=== PATIENT | female | born 1990 | race Caucasian/White ===

== ENCOUNTER 2021-04-10 14:15 | Emergency (ER) | payer BC, SELFPAY ==
[2021-04-10 14:19] VITALS: BP 120/76; PULSE 87; RESP 18; TEMP 36.8; O2SAT 100
== END 2021-04-11 01:31 | disposition left against medical advice (07) ==
LOC: ANHED 16:23
PROVIDERS: PCP Family Medicine
DX: Z53.21 Procedure and treatment not carried out due to patient leaving prior to being seen by health care provider (principal)
CPT/HCPCS: 99199

== ENCOUNTER 2022-04-04 14:56 | Observation (INO) | payer BC, SELFPAY ==
--- NOTE | 2022-04-04 14:56 | OBADM ---
This patient, Mian Duenas, admitted to the OB room Labor/Delivery/Recovery 103 for observation. Patient/family oriented to hospital policies and general routines including ID bracelet, bed and alarms, visiting hours, pain management, procedures, bathroom and other care routines, personal items, smoking policy, room service/diet, and visiting hours. Patient/Family are encouraged to report perceived risks to care and to ask questions if they do not understand what they are told or what they should do.
[2022-04-04 15:15] VITALS: BMI 33.8
--- NOTE | 2022-04-05 14:57 | PM.OBTRLD ---
OB - Triage/Final Diagnosis Visit Information Date of evaluation: 04/05/22 Reason for evaluation: threatened labor Comments/Additional reasons for admission: I have assessed the risk for this patient, Mian Duenas, and determined that she would benefit from observation care. Evaluation Vital signs: Vital Signs - 24 hr 04/04/22 15:15 Oxygen Delivery Room Air
== END 2022-04-04 16:40 | disposition home or self-care (01) ==
PROVIDERS: Admitting Provider Obstetrics & Gynecology; PCP Family Medicine; Visit Provider Obstetrics & Gynecology
DX: O47.1 False labor at or after 37 completed weeks of gestation (principal); Z3A.37 37 weeks gestation of pregnancy
CPT/HCPCS: G0378; G0379

== ENCOUNTER 2022-04-06 04:32 | Inpatient (IN) | payer BC, SELFPAY ==
[2022-04-06] VITALS (71 sets, daily range): BP systolic 84–143; BP diastolic 39–85; PULSE 62–141; RESP 16–18; TEMP 36.8–37.2; O2SAT 74–100; BMI 33.8
--- NOTE | 2022-04-06 06:53 | P.HP_ITS ---
H&P: HPI History of Present Illness Date/Time: 04/06/22 06:53 Chief Complaint: Labor at term with group B strep positivity Narrative: 32-year-old multiparous patient at term with positive group B strep in active labor. Her has been uncomplicated. [facility] Family History Family History Other Patient denies significant medical history Social History Social History Alcohol intake: current Substance use: never Spiritual care concerns: No Meds Home Medications and Allergies Home Medications Medication Instructions Recorded Confirmed Type fluoxetine 40 mg capsule 40 mg PO DAILY 04/30/21 04/30/21 History prenat.vits,migel,[id number] 1 tablet PO HS 03/25/22 03/25/22 History Allergies Allergy/AdvReac Type Severity Reaction Status Date / Time No Known Allergies Allergy Verified 04/30/21 10:46 Exam Const: General: cooperative, healthy appearing and comfortable Nutritional Appearance: average body habitus Orientation/consciousness: oriented to person, oriented to place and oriented to time HENMT: Head: normal to inspection Resp: Effort & Inspection: normal respiratory effort Cardio: Rate: regular rate Rhythm: regular rhythm Heart sounds: S1 normal heart sound present and S2 normal heart sound present GI: Inspection: normal to inspection : External Female Exam: normal external appearance Speculum Exam - Vagina: normal appearance of the vagina Speculum Exam - Cervix: normal appearance of the cervix ( Cervix 6/90/1. AROM clear. FHT is reassuring) Assessment and Plan Assessment and plan (1) Term : Code(s): Z34.90 - Encounter for supervision of normal , unspecified, unspecified trimester Status: Acute (2) Group beta Strep positive: Code(s): B95.1 - Streptococcus, group B, as the cause of diseases classified elsewhere Status: Acute Plan spontaneous vaginal delivery is expected. Group B strep prophylaxis. We will attempt to get epidural
[2022-04-06 07:12] LABS: Basophils Percent Auto 0.2 % (0.2-1.2); Eosinophils Percent Auto 0.4 % (0-4.4); Hematocrit 41.6 % (37.0-47.0); Hemoglobin 13.5 g/dL (12.0-15.0); Immature Granulocyte Absolute 0.09 K/mm3 (0.00-0.031); Immature Granulocyte Percent A 0.9 % (0-0.5); Immature Platelet Fraction Pct 8.5 % (0.9-11.2); Lymphocytes Absolute Auto 1.95 K/mm3 (0.9-3.2); Lymphocytes Percent Auto 18.8 % (18.3-44.2); Mean Corpuscular HGB Conc 32.5 g/dl (32-36); Mean Corpuscular Hemoglobin 28.9 pg (26-34); Mean Corpuscular Volume 89.1 fl (80-100); Mean Platelet Volume 10.3 fl (7.4-10.4); Monocytes Absolute Auto 0.6 K/mm3 (0.1-0.6); Monocytes Percent Auto 5.7 % (2.6-8.5); Neutrophils Absolute Auto 7.7 K/mm3 (1.3-6.7); Platelet Count Result 297 k/mm3 (150-375); Red Blood Count 4.67 M/mm3 (4.2-5.4); Red Cell Distribution Width 14.4 % (11.5-14.5); White Blood Count 10.4 K/mm3 (4.5-10.0)
[2022-04-06] MEDS: LACTATED RINGERS 1,000 ML 125 ML IV CONT ×2 (07:30→08:21)
[2022-04-06] MEDS: AMPICILLIN 2 GM/NS 100 ML 2 GM/100 ML BAG IVPB (07:30)
--- NOTE | 2022-04-06 08:03 | LDADM ---
This patient, Mian Duenas, was admitted to Labor/Delivery/Recovery 109 on 04/06/22 at 04:32. Plans for labor, pain management and were discussed with patient. Patient/family oriented to hospital policies and general routines including ID bracelet, bed and alarms, visiting hours, pain management, procedures, bathroom and other care routines, personal items, smoking policy, room service/diet and guest tray routines, security routines, and visiting hours. Patient/Family are encouraged to report perceived risks to care and to ask questions if they do not understand what they are told or what they should do. See OBIX for further documentation.
--- NOTE | 2022-04-06 08:14 | WPDANESEPPF ---
Anes - Initial Pre Proc Eval Procedure: labor epidural Date/Time: 04/06/22 08:14 Surgeon: Compa Vicente MD Pre Op Diagnosis: labor pain Pre Op Diagnosis: Labor Patient Data Age: 32 Gender: F Height: 1.57 m Weight: 84 kg Last Vital Signs Pulse 87 04/06/22 08:13 BP 88/59 L 04/06/22 08:13 Pulse Ox 100 04/06/22 08:12 O2 Del Method Room Air 04/06/22 08:01 Allergies Allergy/AdvReac Type Severity Reaction Status Date / Time No Known Allergies Allergy Verified 04/30/21 10:46 Home Medications Medication Instructions Recorded Confirmed Type fluoxetine 40 mg capsule 40 mg PO DAILY 04/30/21 04/06/22 History prenat.vits,migel,wuo-crvx-ytepy 1 tablet PO HS 03/25/22 04/06/22 History Laboratory Tests 04/06/22 04/06/22 04/06/22 07:04 07:04 07:04 WBC 10.4 K/mm3 H K/mm3 (4.5-10.0) RBC 4.67 M/mm3 M/mm3 (4.2-5.4) Hgb 13.5 g/dL g/dL (12.0-15.0) Hct 41.6 % % (37.0-47.0) MCV 89.1 fl fl (80-100) MCH 28.9 pg pg (26-34) MCHC 32.5 g/dl g/dl (32-36) RDW 14.4 % % (11.5-14.5) Plt Count 297 k/mm3 k/mm3 (150-375) MPV 10.3 fl fl (7.4-10.4) Immature Gran % (Auto) 0.9 % H % (0-0.5) Neut % (Auto) 74.0 % H % (45.5-73.1) Lymph % (Auto) 18.8 % % (18.3-44.2) Grundy % (Auto) 5.7 % % (2.6-8.5) Eos % (Auto) 0.4 % % (0-4.4) Baso % (Auto) 0.2 % % (0.2-1.2) Lymph # (Auto) 1.95 K/mm3 K/mm3 (0.9-3.2) Grundy # (Auto) 0.6 K/mm3 K/mm3 (0.1-0.6) Eos # (Auto) 0.0 K/mm3 K/mm3 (0-0.3) Baso # (Auto) 0.0 K/mm3 K/mm3 (0.0-0.1) Abs Immat Gran (auto) 0.09 K/mm3 H K/mm3 (0.00-0.031) Absolute Neuts (auto) 7.7 K/mm3 H K/mm3 (1.3-6.7) Absolute Nucleated RBC 0.0 K/mm3 K/mm3 (0.0-0.012) Nucleated RBC % 0.0 % % (0.0-0.2) % Immature Plt Fraction 8.5 % % (0.9-11.2) RPR Pending Blood Type A Positive Antibody Screen Pending Patient hx anesthesia problems: none Family hx anesthesia problems: none Results Review: All pre-operative results and documents have been reviewed as part of the pre-operative evaluation. [facility] Family History Family History Other Patient denies significant medical history Social History Social History Smoking status: Never smoker Alcohol intake: current Substance use: never Lack of Transportation: No Lack of Food: Never True Current Housing: I Have Housing Concerned About Future Housing: No Difficulty Paying Gas/Electric Bills: No Difficulty Paying for Meds: No Currently Unemployed: No Education: Associate Degree Difficulty w/ Childcare or Family Care: No Spiritual care concerns: No Anes - Eval Final PreProcedure Day of Procedure 04/06/22 08:14 Heart: regular rate and rhythm Lungs: clear to auscultation and normal air movement Airway: Mallampati scale class II Neurological: alert and oriented Results Review: All pre-operative results and documents have been reviewed as part of the pre-operative evaluation. Informed Consent: The patient's anesthetic plan and its attendant risks and benefits were discussed with the patient/family/POA. Questions were solicited and answers provided to the satisfaction of the patient/family/POA.
[2022-04-06] MEDS: OXYTOCIN 30 UNITS/NS 500 ML 30 UNITS/500 ML BAG 999 UNITS IV CONT (09:54)
--- NOTE | 2022-04-06 10:03 | PM.OBPRVD ---
OB - Delivery Note Procedure Delivery date: 04/06/22 Events: Positive Group B Strep (GBS) Induction method: None Delivery monitor: External FHT Episiotomy description: None Laceration Description: Perineal - 1st Degree Delivery repair: vicryl Specimen: No Quantitative Blood Loss (ml): 60 Anesthesia type: Epidural Disposition: Floor Baby Date of : 04/06/22 Time of : 09:50 Weeks of gestation at delivery: 39 gender: Male Weight (pounds): 7 Weight (ounces): 6 presentation: vertex position: Right Occiput Anterior Placenta delivery description: Spontaneous Cord Vessel Description: 3 Vessels, Nuchal Cord, Loose and Delayed Cord Clamping score one minute: 8 score five minutes: 9 Narrative: amp x 1
[2022-04-06] MEDS: OXYTOCIN 30 UNITS/NS 500 ML 30 UNITS/500 ML BAG 125 UNITS IV CONT (10:29)
--- NOTE | 2022-04-06 13:20 | PC.NURSE ---
Patient transferred to post room #279 via wheelchair. Support person present. Oriented to unit, room, information board, rooming in, admission packet and security measures. Patient verbalizes understanding.
[2022-04-06] MEDS: IBUPROFEN 600 MG TABLET PO ×2 (14:06→20:32)
[2022-04-06] MEDS: ACETAMINOPHEN 325 MG TABLET 650 MG PO (23:48)
[2022-04-07 04:05] VITALS: BP 106/74; PULSE 83; RESP 16; TEMP 36.9
[2022-04-07 05:14] LABS: Hematocrit 33.9 % (37.0-47.0); Hemoglobin 11.1 g/dL (12.0-15.0)
--- NOTE | 2022-04-07 07:55 | WPDANLDPN2 ---
Anes-Prog Note L&D Date/Time: 04/07/22 07:55 Comfortable throughout: labor Neuraxial method: epidural Epidural/Spinal procedure site: clean & non-tender Neuro status: Neuro function grossly intact. Cardiovascular status: normal Respiratory status: normal Airway patency: baseline Mental status: baseline Post-Op hydration status: normal Vital Signs: Last Vital Signs Temp 36.9 C 04/07/22 04:05 Pulse 83 04/07/22 04:05 Resp 16 04/07/22 04:05 BP 106/74 04/07/22 04:05 Pulse Ox 98 04/06/22 20:20 O2 Del Method Room Air 04/06/22 08:01 Pain score (VAS): <3 I/O: Intake & Output 04/06/22 04/06/22 04/07/22 15:59 23:59 07:59 Intake Total 1600 720 Output Total 160 Balance 1440 720 Patient feedback: Patient satisfied with anesthetic care.
--- NOTE | 2022-04-07 07:56 | PM.OBPNVD ---
OB - PN: Subj Subjective Date/time seen: 04/07/22 07:56 Patient comments: no complaints and pain well controlled baby status: doing well OB - PN: Obj Data Labs 04/07/22 04:05 Labs: Laboratory Results - last 24 hr 04/06/22 04/07/22 07:04 04:05 Hgb 11.1 L Hct 33.9 L Antibody Screen Negative OB - PN A/P Plan day: 1 Plan: routine care Time Spent With Patient Time: Total time spent is greater than 50% in coordination of care (as documented) at patient's floor/unit and/or counseling patient: Time with patient: less than 15 minutes Exam Const: General: cooperative, healthy appearing and comfortable Orientation/consciousness: oriented to person, oriented to place and oriented to time HENMT: Head: normal to inspection Resp: Effort & Inspection: normal respiratory effort GI: Inspection: normal to inspection (Fundus firm below the umbilicus)
--- NOTE | 2022-04-07 07:57 | PM.DS ---
DS: Admitting Diagnosis Discharge Date 04/08/2022 Admitting Diagnosis Term /positive group B strep DS: Discharge Diagnosis Discharge Diagnosis (1) Group beta Strep positive: Code(s): B95.1 - Streptococcus, group B, as the cause of diseases classified elsewhere Status: Acute (2) Term : Code(s): Z34.90 - Encounter for supervision of normal , unspecified, unspecified trimester Status: Acute DS: Summary Hospital Course Reason for hospitalization: Active labor at term with positive group B strep Hospital Course: Patient was admitted in active labor. She was positive for group B strep. She underwent spontaneous vaginal delivery on 04/06/2022. Her 48hour course unremarkable. She remained afebrile. She was up, voiding without difficulty, ambulating, general without complaints. Time Spent with Patient Time attestation: Total time spent providing and/or coordinating discharge services: Exam Const: General: cooperative, healthy appearing and comfortable Nutritional Appearance: average body habitus Orientation/consciousness: oriented to person, oriented to place and oriented to time Resp: Effort & Inspection: normal respiratory effort Cardio: Rate: regular rate Rhythm: regular rhythm Heart sounds: S1 normal heart sound present and S2 normal heart sound present GI: Inspection: normal to inspection DS: Data Data Completed and Pending Labs on day of discharge: Labs from last 24 hours 04/07/22 04/06/22 04:05 07:04 Hgb 11.1 L Hct 33.9 L Antibody Screen Negative Discharge Plan Discharge Attending physician on discharge: Ariel Bennett Discharging Clinician: Ariel Bennett Patient Disposition: Home, Self-Care Activity: may shower, no straining and pelvic rest Diet: heart healthy Wound Care Instructions: follow printed instructions Patient Instructions: Antibiotic Form Stand Alone Forms: General Discharge Information Follow-up/Referrals: Ariel Bennett MD [Physician] - Discharge Medications: Continued fluoxetine 40 mg capsule 40 mg PO DAILY prenat.vits,migel,[id number]-keix-hifqc Tablet 1 tablet PO HS Date of admission: 04/06/22 04:32 Primary Care Provider: Lili Smyth Admitting Provider: Compa Vicente Attending physician on admission: Compa Vicente Condition: Stable
[2022-04-07 08:15] VITALS: BP 107/71; PULSE 93; RESP 18; TEMP 36.3; O2SAT 99
[2022-04-07] MEDS: IBUPROFEN 600 MG TABLET PO ×2 (08:58→17:45)
[2022-04-07] MEDS: ACETAMINOPHEN 325 MG TABLET 650 MG PO ×2 (11:56→20:22)
[2022-04-07 20:15] VITALS: BP 109/74; PULSE 84; RESP 16; TEMP 37.1; O2SAT 99
--- NOTE | 2022-04-08 07:38 | PM.OBPNVD ---
OB - PN: Subj Subjective Date/time seen: 04/08/22 07:38 Patient comments: no complaints and pain well controlled baby status: doing well and nursing well OB - PN: Obj Data Labs 04/07/22 04:05 OB - PN A/P Plan day: 2 Plan: routine care, discharge home and follow up 6 weeks Time Spent With Patient Time: Total time spent is greater than 50% in coordination of care (as documented) at patient's floor/unit and/or counseling patient: Time with patient: less than 15 minutes Exam Const: General: cooperative, healthy appearing and comfortable Nutritional Appearance: average body habitus Orientation/consciousness: oriented to person, oriented to place and oriented to time HENMT: Head: normal to inspection Resp: Effort & Inspection: normal respiratory effort GI: Inspection: normal to inspection
[2022-04-08 07:45] VITALS: BP 107/77; PULSE 74; RESP 18; TEMP 37.2; O2SAT 100
[2022-04-08] MEDS: IBUPROFEN 600 MG TABLET PO (07:57)
[2022-04-08 08:05] LABS: Rapid Plasma Reagin Non-Reactive (NonReactive)
--- NOTE | 2022-04-08 10:10 | PC.NURSE ---
Rowan Guzman RN, has checked the charting for Maria Luisa Bob, who is a student nurse that is in training.
--- NOTE | 2022-04-08 10:38 | PC.NURSE ---
Patient to view the discharge video Mother & Baby Care, The First Two Weeks online. Patient was given the opportunity and encouraged to ask questions. Patient verbalized understanding of information shared and has been given the mother/baby guide for home reference.
[2022-04-09 12:14] VITALS: BP 112/74; PULSE 95; RESP 20; TEMP 36.9; O2SAT 100
== END 2022-04-08 11:35 | disposition home or self-care (01) | DRG 807 ==
LOC: ANHOB2 04-08 10:41 → ANHLDR 04-10 10:48 → ANHOB2 04-10 10:48
PROVIDERS: Admitting Provider Obstetrics & Gynecology; PCP Family Medicine; Visit Provider Obstetrics & Gynecology
DX: O99.824 Streptococcus B carrier state complicating childbirth (principal); Z37.0 Single live birth; O76 Abnormality in fetal heart rate and rhythm complicating labor and delivery; O70.0 First degree perineal laceration during delivery; O69.81X0 Labor and delivery complicated by cord around neck, without compression, not applicable or unspecified; Z3A.39 39 weeks gestation of pregnancy
CPT/HCPCS: 36415; 85014; 85018; 85025; 85055; 86592; 86850; 86900; 86901; A9270; J0290; J2590; J2795; J7120

== ENCOUNTER → 2022-05-28 14:12 | Outpatient (CLI) | payer BC, SELFPAY ==
--- NOTE | ~2022-05-28 | MMUS_ITS ---
EXAMINATION: MM diagnostic nuzhat BI w alejandro, US breast BI complete HISTORY: Left breast lump for 6 months, noticed after TECHNIQUE: Bilateral full field and left spot ML, MLO and CC 3-D tomosynthesis images were performed and synthetic 2-D images were generated. CAD analysis was submitted and interpreted. High resolution complete bilateral breast ultrasound examination including all 4 quadrants and subareolar areas was p erformed. COMPARISON: None BREAST PARENCHYMAL COMPOSITION: The breasts are extremely dense, which lowers the sensitivity of mamm ography. FINDINGS: MAMMOGRAPHIC FINDINGS: No suspicious mass or architectural distortion, malignant calcification, skin thickening or retractio n or significant new or developing density is detected. ULTRASOUND: Right breast: 12:00 6 cm from nipple: 5.8 x 6.3 x 5.9 mm sonolucency with through transmission posterior enhancemen t consistent with simple cyst Left breast: Subareolar area: Complex mixed solid and cystic 4 x 11 x 12 mm lesion with internal vascularity but n o posterior shadowing. This is probably benign. Six-month follow-up left diagnostic mammogram and lef t breast ultrasound examination is recommended IMPRESSION: 1. Probably benign left subareolar complex lesion 2. 6 month diagnostic left mammogram and left breast ultrasound follow-up are recommended BI-RADS category 3, probably benign findings. Reviewed, dictated and finalized at location A. HES SEPARATOR IMPRESSION: 1. Probably benign left subareolar complex lesion 2. 6 month diagnostic left mammogram and left breast ultrasound follow-up are r ecommended BI-RADS category 3, probably benign findings.
== END ==
PROVIDERS: PCP Family Medicine; Visit Provider Obstetrics & Gynecology
DX: N63.42 Unspecified lump in left breast, subareolar (principal)
CPT/HCPCS: 76641; 77062; 77066; G0279

== ENCOUNTER 2022-06-21 18:53 | Emergency (ER) | payer BC, SELFPAY ==
[2022-06-21 18:58] VITALS: BP 116/84; PULSE 109; RESP 16; TEMP 36.9; O2SAT 99
--- NOTE | 2022-06-21 20:11 | ED.URI ---
HPI - URI/Sore Throat General Chief Complaint: Upper Respiratory Infection Stated Complaint: strep test Source: patient, family and RN notes reviewed History of Present Illness HPI Narrative: 32-year-old female presents urgent care with daughter at side. Patient states she developed a sore throat a few days ago. Denies any fevers, chills, chest pain, shortness breath, or vomiting. Denies any ear pain or headaches. Some parts of this dictation were generated by voice recognition software and may contain typographical and/or grammatical inaccuracies. Related Data Home Medications Medication Instructions Recorded Confirmed fluoxetine 40 mg capsule 40 mg PO DAILY 04/30/21 06/21/22 Allergies Allergy/AdvReac Type Severity Reaction Status Date / Time No Known Allergies Allergy Verified 06/21/22 19:13 Review of Systems Review of Systems: Pertinent positives and pertinent negatives per HPI. [facility] Family History Family History Other Patient denies significant medical history Social History Social History Smoking status: Never smoker Alcohol intake: current Substance use: never Lack of Transportation: No Lack of Food: Never True Current Housing: I Have Housing Concerned About Future Housing: No Difficulty Paying Gas/Electric Bills: No Difficulty Paying for Meds: No Currently Unemployed: No Education: Associate Degree Difficulty w/ Childcare or Family Care: No Spiritual care concerns: No Comments At the time of my signature, I reviewed and agree with the nursing past medical, surgical, social, and family history. There is no relevant family history pertinent to the patient complaint. Exam Narrative: GENERAL: This is a well-nourished, well-developed patient, in no apparent distress. HEAD: normocephalic, atraumatic. EYES: PERRL. Sclera clear/white. Vision is grossly intact. EARS: External ears normal, auditory canals clear and without drainage, TMs normal without perforation. Hearing grossly intact. NOSE: External nose normal with no obvious nasal discharge, nares without redness, no rhinorrhea. THROAT: Mucous membranes moist, posterior pharynx erythemic. No exudate noted.. NECK: Neck supple, non-tender without lymphadenopathy, masses or thyromegaly. CARDIOVASCULAR: Regular rate and rhythm without murmurs, gallops, or rubs. RESPIRATORY: Clear to auscultation. Breath sounds equal bilaterally. No wheezes, rales, or rhonchi. GASTROINTESTINAL: Abdomen soft, non-tender, nondistended. Bowel sounds are active. No hepato-splenomegaly, or palpable masses. No guarding. SKIN: warm, intact with no suspicious lesions or rash, good texture and turgor. NEURO: awake, alert, and oriented to person, place and time. There were no obvious focal neurologic abnormalities. Course Course Level of Care: Express Care Visit Vital Signs Vital signs: Vital Signs Temperature 98.4 F 06/21/22 18:58 Pulse Rate 109 H 06/21/22 18:58 Respiratory Rate 16 06/21/22 18:58 Blood Pressure 116/84 06/21/22 18:58 Pulse Oximetry 99 06/21/22 18:58 Oxygen Delivery Room Air 06/21/22 18:58 Temperature 98.4 F 06/21/22 18:58 Pulse Rate 109 H 06/21/22 18:58 Respiratory Rate 16 06/21/22 18:58 Blood Pressure 116/84 06/21/22 18:58 Pulse Oximetry 99 06/21/22 18:58 Oxygen Delivery Room Air 06/21/22 18:58 Reviewed MDM - URI/Sore Throat MDM Narrative Medical decision making narrative: Rapid strep is negative in the office; however we will send to the lab for confirmation; there is a small percentage chance that it can come back positive; if it is, we will call you in 2-3days; you will be given antibiotic today due to your close exposure to positive strep with your daughter. -Increase your fluids and Vitamin C. -Oral rinses such as: Salt water gargles and/or may use topical anesthetic (eg.
== END 2022-06-21 20:18 | disposition home or self-care (01) ==
PROVIDERS: Emergency Provider Nurse Practitioner Family
DX: J02.9 Acute pharyngitis, unspecified (principal)
CPT/HCPCS: 87081; 87880; 99213; G0463

== ENCOUNTER 2022-06-24 09:41 | Emergency (ER) | payer BC, SELFPAY ==
--- NOTE | 2022-06-24 09:48 | ED.URI ---
HPI - URI/Sore Throat General Chief Complaint: Upper Respiratory Infection Stated Complaint: Eye Problem/Sore Throat Time Seen by Provider: 06/24/22 09:48 Source: patient and RN notes reviewed History of Present Illness HPI Narrative: Patient is a 32-year-old female who presents to urgent care with complaints of left eye matting and itchiness. Patient also reports of a continual sore throat since last Friday when she was tested for strep at our facility. Patient's culture was negative however she was placed on amoxicillin because her daughter was positive for strep. Patient has not been taking anything [id number] such as antihistamines to help with her symptom relief. States that she took Tylenol for the sore throat. Denies any recent fevers, nausea or vomiting. No other acute complaints. No acute distress noted. Patient aware of the plan of care. Some parts of this dictation were generated by voice recognition software and may contain typographical and/or grammatical inaccuracies. Related Data Home Medications Medication Instructions Recorded Confirmed fluoxetine 40 mg capsule 40 mg PO DAILY 04/30/21 06/21/22 Allergies Allergy/AdvReac Type Severity Reaction Status Date / Time No Known Allergies Allergy Verified 06/21/22 19:13 Review of Systems Review of Systems: CONSTITUTIONAL: Denies fever, chills, or sweats. EYES: Reports of itchiness and matting to the left eye this morning ENT: Denies rhinorrhea, congestion, otalgia. Reports of sore throat CARDIOVASCULAR: Denies chest pain, palpitations, or edema. RESPIRATORY: Denies cough or dyspnea. GASTROINTESTINAL: Denies abdominal pain, nausea, vomiting, or diarrhea. GENITOURINARY: Denies dysuria or hematuria. SKIN: Denies rash or itching. MUSCULOSKELETAL: Denies back pain, joint pain, or myalgia. NEUROLOGIC: Denies headache, numbness, or weakness. All other systems reviewed are negative, except as documented in HPI. [facility] Family History Family History Other Patient denies significant medical history Social History Social History Smoking status: Never smoker Alcohol intake: current Substance use: never Lack of Transportation: No Lack of Food: Never True Current Housing: I Have Housing Concerned About Future Housing: No Difficulty Paying Gas/Electric Bills: No Difficulty Paying for Meds: No Currently Unemployed: No Education: Associate Degree Difficulty w/ Childcare or Family Care: No Spiritual care concerns: No Comments At the time of my signature, I reviewed and agree with the nursing past medical, surgical, social, and family history. There is no relevant family history pertinent to the patient complaint. Exam Narrative: GENERAL: This is a well-nourished, well-developed patient, in no apparent distress. HEAD: normocephalic, atraumatic. EYES: PERRL. Sclera clear/white. Vision is grossly intact. Mild injected conjunctiva bilaterally with clear drainage EARS: External ears normal, auditory canals clear and without drainage, TMs normal without perforation. Hearing grossly intact. NOSE: External nose normal with no obvious nasal discharge, nares without redness, clear rhinorrhea. THROAT: Mucous membranes moist, mild erythema to posterior pharynx with mild postnasal drainage NECK: Neck supple, non-tender without lymphadenopathy CARDIOVASCULAR: Regular rate and rhythm RESPIRATORY: Clear to auscultation. Breath sounds equal bilaterally. No wheezes, rales, or rhonchi. SKIN: warm, intact with no suspicious lesions or rash, good texture and turgor. NEURO: awake, alert, and oriented to person, place and time. There were no obvious focal neurologic abnormalities. EXTREMITIES: No clubbing, cyanosis, or edema. Course Course Level of Care: Express Care Visit Vital Signs Vital signs: Vital Signs Temperature 98.5 F 03/20/
[2022-06-24 10:06] VITALS: BP 99/76; PULSE 78; RESP 16; TEMP 36.9; O2SAT 100
== END 2022-06-24 10:44 | disposition home or self-care (01) ==
PROVIDERS: Emergency Provider Nurse Practitioner Family; PCP Family Medicine
DX: H57.13 Ocular pain, bilateral (principal); J02.9 Acute pharyngitis, unspecified
CPT/HCPCS: 99213; G0463

== ENCOUNTER → 2023-02-07 07:44 | Outpatient (CLI) | payer BC, SELFPAY ==
--- NOTE | ~2023-02-07 | MMUS_ITS ---
EXAMINATION: MM diagnostic nuzhat LT w alejandro, US breast LT limited HISTORY: Six-month follow-up for probably benign left breast mass TECHNIQUE: Craniocaudal, mediolateral, and mediolateral oblique 3-D tomosynthesis images of the left breast were performed and synthetic 2-D images were generated. CAD analysis was submitted and interpr eted. High resolution limited left breast ultrasound was performed. COMPARISON: 05/28/2022 BREAST PARENCHYMAL COMPOSITION: The breasts are heterogeneously dense, which may obscure small masses . FINDINGS: MAMMOGRAPHIC FINDINGS: No suspicious mass, calcification, or architectural distortion are identified to suggest malignancy. There has been no suspicious interval change. ULTRASOUND: There is an 8 mm x 2 mm oval, circumscribed, parallel, no posterior features or internal vascularity near the nipple which demonstrates interval decrease in size. No suspicious cystic or solid mass is i dentified. IMPRESSION: 1. Subareolar left breast mass with interval decrease in size, consistent with a benign finding. No m ammographic or sonographic evidence of malignancy. 2. Recommend routine screening mammography beginning at age 40. BI-RADS Category 2: Benign finding(s). Reviewed, dictated and finalized at location A. IMPRESSION: 1. Subareolar left breast mass with interval decrease in size, consistent with a benign finding. No mammographic or sonographic evidence of malignancy. 2. Recommend routine screening mammography beginning at age 40. BI-RADS Category 2: Benign finding(s).
== END ==
PROVIDERS: PCP Obstetrics & Gynecology; Visit Provider Obstetrics & Gynecology
DX: R92.8 Other abnormal and inconclusive findings on diagnostic imaging of breast (principal)
CPT/HCPCS: 76642; 77061; 77065; G0279